=== PATIENT | male | born 1985 | race American Indian/Alaskan Native ===

== ENCOUNTER 2019-06-25 10:53 | Emergency (ER) | payer SELFPAY ==
[2019-06-25 11:36] VITALS: BP 119/82
--- NOTE | 2019-06-25 11:39 | Emergency Department Report ---
Chief Complaint: Headache Stated Complaint: HEADACHE/FATIGUE/DEHYDRATION Time Seen by Provider: 06/25/19 11:35 - HPI History of Present Illness: HAD NASCIMENTO YESTERDAY TOOK TYLENOL BETTER TODAY JUST WANTS CHECKED BP N NO FEVER OR [facility] NON ILL NO PMH NO RX NO DRUGS/ETOH NO TRAUMA NO LIFE THREAT DC TO PCP - Exam Vital Signs: Vital Signs 06/25/19 11:35 Temperature 98.4 F Pulse Rate 76 Respiratory 20 Rate Blood Pressure 119/82 O2 Sat by Pulse 98 Oximetry MSE screening note: Focused history and physical exam performed. Due to findings the following was ordered: ED Disposition for MSE Condition: Stable
== END 2019-06-25 11:40 | disposition left against medical advice (07) ==
LOC: ED 10:53
DX: R51 Headache (principal); Z53.21 Procedure and treatment not carried out due to patient leaving prior to being seen by health care provider